=== PATIENT | male | born 1950 ===

== ENCOUNTER 2018-07-26 17:52 | Inpatient (IN) | payer OTHER, MEDICAID ==
--- NOTE | 2018-07-26 19:08 | CP.PCM.HP ---
History of Present Illness - History of Present Illness History of Present Illness: 67 yo male with history of COPD, Depression and HTN was admitted at [facility] on 07/20/2018 because of syncopal episode caused by dehydration from vomiting and diarrhea. He is now transferred here to TCU for therapy. Patient continued to have weakness in spite of being well hydrated. Present on Admission - Present on Admission Any Indicators Present on Admission: No History of DVT/PE: No History of Uncontrolled Diabetes: No Urinary Catheter: No Decubitus Ulcer Present: No Review of Systems - Review of Systems All systems: reviewed and no additional remarkable complaints except (aside from those mentioned above, 12 point system review were negative by me) Past Patient History - Infectious Disease Hx of Infectious Diseases: None - Tetanus Immunizations Tetanus Immunization: Unknown - Past Medical History & Family History Past Medical History?: Yes - Past Social History Smoking Status: Heavy Smoker > 10 Cigarettes Daily Chewing Tobacco Use: No Cigar Use: No Alcohol: Occasional Drugs: Denies Home Situation {Lives}: With Family - CARDIAC Hx Cardiac Disorders: Yes Hx Hypertension: Yes - PULMONARY Hx Chronic Obstructive Pulmonary Disease (COPD): Yes - NEUROLOGICAL HX Cerebrovascular Accident: Yes - HEENT Hx HEENT Problems: No - RENAL Hx Chronic Kidney Disease: No - ENDOCRINE/METABOLIC Hx Endocrine Disorders: No - HEMATOLOGICAL/ONCOLOGICAL Hx Blood Disorders: No - INTEGUMENTARY Hx Dermatological Problems: No - MUSCULOSKELETAL/RHEUMATOLOGICAL Hx Musculoskeletal Disorders: No Hx Falls: Yes - GASTROINTESTINAL Hx Gastrointestinal Disorders: No - GENITOURINARY/GYNECOLOGICAL Hx Genitourinary Disorders: No - PSYCHIATRIC Hx Psychophysiologic Disorder: Yes Hx Anxiety: Yes Hx Depression: Yes Hx Substance Use: No - SURGICAL HISTORY Hx Surgeries: No - ANESTHESIA Hx Anesthesia: No Meds Allergies/Adverse Reactions: Allergies Allergy/AdvReac Type Severity Reaction Status Date / Time No Known Allergies Allergy Verified 07/26/18 18:25 Physical Exam - Constitutional Appears: No Acute Distress - Head Exam Head Exam: ATRAUMATIC - Eye Exam Eye Exam: absent: Scleral icterus - ENT Exam ENT Exam: Mucous Membranes Moist - Neck Exam Neck exam: Negative for: Meningismus - Respiratory Exam Respiratory Exam: absent: Rales, Rhonchi, Wheezes, Respiratory Distress - Cardiovascular Exam Cardiovascular Exam: REGULAR RHYTHM, +S1, +S2 - GI/Abdominal Exam GI & Abdominal Exam: Soft. absent: Tenderness - Rectal Exam Rectal Exam: Deferred - Back Exam Back exam: NORMAL INSPECTION - Neurological Exam Neurological exam: Alert, Oriented x3 - Psychiatric Exam Psychiatric exam: Normal Affect - Skin Skin Exam: Dry, Intact Results - Vital Signs Recent Vital Signs: Last Vital Signs Temp 97.8 F 07/26/18 18:42 Pulse 98 H 07/26/18 18:42 Resp 20 07/26/18 18:42 BP 107/71 07/26/18 18:42 Pulse Ox 95 07/26/18 18:42 Assessment & Plan - Assessment and Plan (Free Text) Assessment: 67 yo male with history of COPD, Depression and HTN was admitted at [facility] on 07/20/2018 because of syncopal episode caused by dehydration from vomiting and diarrhea. He is now transferred here to TCU for therapy. Patient continued to have weakness in spite of being well hydrated. 1. Weakness weakness secondary to deconditioning refer to PT for evaluation and management physiatry consult 2. COPD stable Duoneb via nebulizer q 4hrs prn 3. HTN BP controlled continue Bisoprolol and Lisinopril 4. DVT prophylaxis Heparin 5000 units SC q 12hrs
[2018-07-26] MEDS ORDERED: Influenza Vaccine 60 MCG/0.5 ML SYR (3 yr & up) IM ONE (21:00)
[2018-07-26] MEDS ORDERED: Pneumococcal 23-Valent Vaccine IM ONE (21:00)
[2018-07-26] MEDS ORDERED: Influenza Vaccine 60 mcg/0.5 mL SYR (4YR UP) IM ONE (22:48)
[2018-07-27] MEDS: Albuterol-Ipratrop 3 mg / 0.5 (3 ml) UD IH SCH ×4 (01:15→19:04)
[2018-07-27 06:26] LABS: BASO % 0.6 % (0.0-2.0); EOS # 0.3 K/uL (0.0-0.7); EOS % 3.1 % (0.0-4.0); HEMOGLOBIN 14.1 g/dL (12.0-18.0); LYMPH # 1.7 K/uL (1.0-4.3); LYMPH % 20.5 % (20.0-40.0); MEAN CELL VOLUME 99.1 fl (80.0-94.0); MEAN CORPUSCULAR HEMOGLOBIN 33.8 pg (27.0-31.0); MEAN CORPUSCULAR HGB CONC 34.1 g/dL (33.0-37.0); MEAN PLATELET VOLUME 8.2 fl (7.2-11.7); MONO # 1.2 K/uL (0.0-0.8); MONO % 14.8 % (0.0-10.0); NEUT # 4.9 K/uL (1.8-7.0); NRBC % 0.1 % (0.0-0.0); RBC 4.19 Mil/uL (4.40-5.90); RED CELL DISTRIBUTION WIDTH 12.8 % (11.5-14.5); WHITE BLOOD COUNT 8.1 K/uL (4.8-10.8)
[2018-07-27 06:32] LABS: ALB/GLOB RATIO 1.1 (1.0-2.1); ALBUMIN 4.1 g/dL (3.5-5.0); ALT/SGPT 29 U/L (21-72); AST/SGOT 43 U/L (17-59); BLOOD UREA NITROGEN 14 mg/dl (9-20); CALCIUM 9.9 mg/dL (8.4-10.2); GFR NON-AFRICAN AMERICAN > 60
[2018-07-27] MEDS: Pantoprazole 40 mg EC Tab PO SCH (08:47)
[2018-07-27] MEDS: Potassium Chloride 20 mEq ER Tab PO SCH (08:47)
[2018-07-27] MEDS ORDERED: TERAZOSIN 2 MG PO SCH (09:00)
[2018-07-27] MEDS ORDERED: [UNRECOGNIZED DRUG - MIXTURE] PO SCH (09:00)
[2018-07-28] MEDS: Albuterol-Ipratrop 3 mg / 0.5 (3 ml) UD IH SCH ×4 (01:00→19:16)
[2018-07-28] MEDS: Potassium Chloride 20 mEq ER Tab PO SCH (08:41)
[2018-07-28] MEDS: Pantoprazole 40 mg EC Tab PO SCH (08:41)
--- NOTE | 2018-07-28 12:02 | CP.PCM.PN ---
Subjective - Date & Time of Evaluation Date of Evaluation: 07/28/18 Time of Evaluation: 10:30 - Subjective Subjective: Patient seen and examined. Appeared doing well and admitted being well. Objective - Vital Signs/Intake and Output Vital Signs (last 24 hours): Temp Pulse Resp BP Pulse Ox 98.6 F 80 20 92/57 L 99 07/28/18 08:11 07/28/18 10:23 07/28/18 08:11 07/28/18 10:23 07/28/18 08:11 - Medications Medications: Current Medications Albuterol/Ipratropium (Duoneb 3 Mg/0.5 Mg (3 Ml) Ud) 3 ml IH RQ6 [facility] Last Admin: 07/28/18 07:11 Dose: 3 ml Bisoprolol Fumarate (Zebeta) 10 mg PO DAILY [facility] Last Admin: 07/27/18 08:48 Dose: 10 mg Heparin Sodium (Porcine) (Heparin) 5,000 units SC Q12 [facility]; Protocol Last Admin: 07/28/18 08:40 Dose: 5,000 units Lisinopril (Zestril) 5 mg PO BID [facility] Last Admin: 07/28/18 10:23 Dose: Not Given Pantoprazole Sodium (Protonix Ec Tab) 40 mg PO DAILY [facility] Last Admin: 07/28/18 08:41 Dose: 40 mg Paroxetine HCl (Paxil) 40 mg PO DAILY [facility] Last Admin: 07/28/18 08:41 Dose: 40 mg Potassium Chloride (K-Dur 20 Meq Er Tab) 40 meq PO DAILY [facility] Last Admin: 07/28/18 08:41 Dose: 40 meq Promethazine HCl/Dextromethorphan (Phenergan Dm Syrup) 5 ml PO Q6 PRN PRN Reason: Cough Terazosin HCl (Hytrin) 2 mg PO DAILY [facility] Last Admin: 07/28/18 08:42 Dose: 2 mg - Labs Labs: 07/27/18 05:23 07/27/18 05:23 - Constitutional Appears: No Acute Distress - Head Exam Head Exam: ATRAUMATIC - Eye Exam Eye Exam: absent: Scleral icterus - ENT Exam ENT Exam: Mucous Membranes Moist - Neck Exam Neck Exam: absent: Meningismus - Respiratory Exam Respiratory Exam: absent: Rales, Rhonchi, Wheezes, Respiratory Distress - Cardiovascular Exam Cardiovascular Exam: REGULAR RHYTHM, +S1, +S2 - GI/Abdominal Exam GI & Abdominal Exam: Soft. absent: Tenderness - Rectal Exam Rectal Exam: Deferred - Back Exam Back Exam: NORMAL INSPECTION - Neurological Exam Neurological Exam: Alert, Oriented x3 - Psychiatric Exam Psychiatric exam: Normal Affect - Skin Skin Exam: Dry, Intact Assessment and Plan - Assessment and Plan (Free Text) Assessment: 67 yo male with history of COPD, Depression and HTN was admitted at [facility] on 07/20/2018 because of syncopal episode caused by dehydration from vomiting and diarrhea. He was to TCU for therapy because of ongoing weakness. 1. Weakness doing well and tolerating PT/OT 2. COPD stable Duoneb via nebulizer q 4hrs prn 3. HTN BP on the low side DC Lisinopril continue Bisoprolol 4. DVT prophylaxis Heparin 5000 units SC q 12hrs
[2018-07-28] MEDS: Promethazine DM 6.25 mg-15 mg/5 ml Syrup PO PRN (20:59)
[2018-07-29] MEDS: Albuterol-Ipratrop 3 mg / 0.5 (3 ml) UD IH SCH ×4 (02:48→19:00)
[2018-07-29] MEDS: Pantoprazole 40 mg EC Tab PO SCH (09:49)
[2018-07-29] MEDS: Potassium Chloride 20 mEq ER Tab PO SCH ×2 (09:49→12:40)
[2018-07-29] MEDS: Promethazine DM 6.25 mg-15 mg/5 ml Syrup PO PRN (21:17)
[2018-07-30] MEDS: Albuterol-Ipratrop 3 mg / 0.5 (3 ml) UD IH SCH ×4 (01:00→18:59)
[2018-07-30 06:26] LABS: URINE BILIRUBIN NEGATIVE (NEGATIVE); URINE BLOOD SMALL (NEGATIVE); URINE CLARITY CLEAR (Clear); URINE COLOR YELLOW (YELLOW); URINE GLUCOSE (UA) NEG (NEGATIVE); URINE LEUKOCYTE ESTERASE NEG Leu/uL (Negative); URINE PROTEIN NEGATIVE (NEGATIVE); URINE UROBILINOGEN 0.2-1.0 mg/dL (0.2-1.0)
[2018-07-30] MEDS: Potassium Chloride 20 mEq ER Tab PO SCH (09:06)
[2018-07-30] MEDS: Pantoprazole 40 mg EC Tab PO SCH (09:08)
[2018-07-31] MEDS: Albuterol-Ipratrop 3 mg / 0.5 (3 ml) UD IH SCH ×4 (01:08→19:16)
[2018-07-31] MEDS: Pantoprazole 40 mg EC Tab PO SCH (08:17)
[2018-07-31] MEDS: Potassium Chloride 20 mEq ER Tab PO SCH (08:17)
[2018-08-01] MEDS: Albuterol-Ipratrop 3 mg / 0.5 (3 ml) UD IH SCH ×4 (01:01→19:23)
[2018-08-01] MEDS: Potassium Chloride 20 mEq ER Tab PO SCH (08:20)
[2018-08-01] MEDS: Pantoprazole 40 mg EC Tab PO SCH (08:22)
[2018-08-01] MEDS: Promethazine DM 6.25 mg-15 mg/5 ml Syrup PO PRN (20:48)
[2018-08-02] MEDS: Albuterol-Ipratrop 3 mg / 0.5 (3 ml) UD IH SCH ×5 (00:36→19:23)
[2018-08-02] MEDS: Pantoprazole 40 mg EC Tab PO SCH (08:25)
[2018-08-02] MEDS: Potassium Chloride 20 mEq ER Tab PO SCH (08:26)
[2018-08-02 16:30] VITALS: RESP 20
--- NOTE | 2018-08-02 16:37 | CP.PCM.PN ---
Subjective - Date & Time of Evaluation Date of Evaluation: 08/02/18 Time of Evaluation: 11:00 - Subjective Subjective: Patient seen and examined. Denied any complaint. Objective - Vital Signs/Intake and Output Vital Signs (last 24 hours): Temp Pulse Resp BP Pulse Ox 97.5 F L 74 20 107/65 95 08/02/18 16:30 08/02/18 16:30 08/02/18 16:30 08/02/18 16:30 08/02/18 16:30 - Medications Medications: Current Medications Albuterol/Ipratropium (Duoneb 3 Mg/0.5 Mg (3 Ml) Ud) 3 ml IH RQ6 [facility] Last Admin: 08/02/18 13:18 Dose: 3 ml Bisoprolol Fumarate (Zebeta) 5 mg PO DAILY [facility] Last Admin: 08/02/18 08:25 Dose: 5 mg Heparin Sodium (Porcine) (Heparin) 5,000 units SC Q12 [facility]; Protocol Last Admin: 08/02/18 08:25 Dose: 5,000 units Pantoprazole Sodium (Protonix Ec Tab) 40 mg PO DAILY [facility] Last Admin: 08/02/18 08:25 Dose: 40 mg Paroxetine HCl (Paxil) 40 mg PO DAILY [facility] Last Admin: 08/02/18 08:25 Dose: 40 mg Potassium Chloride (K-Dur 20 Meq Er Tab) 40 meq PO DAILY [facility] Last Admin: 08/02/18 08:26 Dose: 40 meq Promethazine HCl/Dextromethorphan (Phenergan Dm Syrup) 5 ml PO Q6 PRN PRN Reason: Cough Last Admin: 08/01/18 20:48 Dose: 5 ml Terazosin HCl (Hytrin) 2 mg PO DAILY [facility] Last Admin: 08/02/18 08:25 Dose: 2 mg - Labs Labs: 07/27/18 05:23 07/27/18 05:23 - Constitutional Appears: No Acute Distress - Head Exam Head Exam: ATRAUMATIC - Eye Exam Eye Exam: absent: Scleral icterus - ENT Exam ENT Exam: Mucous Membranes Moist - Neck Exam Neck Exam: absent: Meningismus - Respiratory Exam Respiratory Exam: absent: Rales, Rhonchi, Wheezes, Respiratory Distress - Cardiovascular Exam Cardiovascular Exam: REGULAR RHYTHM, +S1, +S2 - GI/Abdominal Exam GI & Abdominal Exam: Soft. absent: Tenderness - Rectal Exam Rectal Exam: Deferred - Back Exam Back Exam: NORMAL INSPECTION - Neurological Exam Neurological Exam: Alert, Oriented x3 - Psychiatric Exam Psychiatric exam: Normal Affect - Skin Skin Exam: Dry, Intact Assessment and Plan - Assessment and Plan (Free Text) Assessment: 67 yo male with history of COPD, Depression and HTN was admitted at [facility] on 07/20/2018 because of syncopal episode caused by dehydration from vomiting and diarrhea. He was to TCU for therapy because of ongoing weakness. 1. Weakness continue PT/OT 2. COPD stable Duoneb via nebulizer q 4hrs prn 3. HTN BP stable continue Bisoprolol 4. DVT prophylaxis Lovenox 40mg SC daily starting tomorrow
[2018-08-03] MEDS: Albuterol-Ipratrop 3 mg / 0.5 (3 ml) UD IH SCH ×3 (01:00→13:29)
[2018-08-03 06:12] LABS: HEMOGLOBIN 13.5 g/dL (12.0-18.0); MEAN CORPUSCULAR HEMOGLOBIN 33.3 pg (27.0-31.0); MEAN CORPUSCULAR HGB CONC 34.4 g/dL (33.0-37.0); RBC 4.04 Mil/uL (4.40-5.90); RED CELL DISTRIBUTION WIDTH 12.8 % (11.5-14.5); WHITE BLOOD COUNT 5.1 K/uL (4.8-10.8)
[2018-08-03 06:42] LABS: BLOOD UREA NITROGEN 18 mg/dl (9-20); CALCIUM 9.7 mg/dL (8.4-10.2); GFR NON-AFRICAN AMERICAN > 60
[2018-08-03 07:56] VITALS: BP 109/65; PULSE 70; TEMP 97.7; O2SAT 98
[2018-08-03] MEDS: Pantoprazole 40 mg EC Tab PO SCH (08:04)
[2018-08-03] MEDS: Potassium Chloride 20 mEq ER Tab PO SCH (08:04)
[2018-08-03] MEDS: Promethazine DM 6.25 mg-15 mg/5 ml Syrup PO PRN (08:05)
[2018-08-03] MEDS ORDERED: Enoxaparin 40 mg Syringe SC SCH (09:00)
--- NOTE | 2018-08-03 11:36 | CP.PCM.DIS ---
Provider - Provider Date of Admission: 07/26/18 18:51 Attending physician: Oidlon Coon MD Consults: 07/27/18 07:30 Case Management Referral Routine Comment: Physician Instructions: Reason For Exam: Reason for Referral: Discharge Planning Pastoral Care Referral Routine Comment: Physician Instructions: Reason For Exam: advance directive information 07/27/18 08:27 Wound Care [Nursing Referral for Wound Care] Routine Comment: Physician Instructions: Reason For Exam: new admission, christiano score 17 Time Spent in preparation of Discharge (in minutes): 25 Diagnosis - Discharge Diagnosis (1) Weakness Status: Acute Comment: did well with therapy (2) COPD (chronic obstructive pulmonary disease) Status: Chronic Comment: asymptomatic. continue Ventolin inhaler q 4hrs prn for SOB (3) HTN (hypertension) Status: Acute Comment: BP stable. continue Bisoprolol Hospital Course - Lab Results Lab Results: Most Recent Lab Values WBC 5.1 K/uL (4.8-10.8) 08/03/18 05:30 RBC 4.04 Mil/uL (4.40-5.90) L 08/03/18 05:30 Hgb 13.5 g/dL (12.0-18.0) 08/03/18 05:30 Hct 39.2 % (35.0-51.0) 08/03/18 05:30 MCV 97.0 fl (80.0-94.0) H D 08/03/18 05:30 MCH 33.3 pg (27.0-31.0) H 08/03/18 05:30 MCHC 34.4 g/dL (33.0-37.0) 08/03/18 05:30 RDW 12.8 % (11.5-14.5) 08/03/18 05:30 Plt Count 554 K/uL (130-400) H 08/03/18 05:30 MPV 8.2 fl (7.2-11.7) 07/27/18 05:23 Neut % (Auto) 61.0 % (50.0-75.0) 07/27/18 05:23 Lymph % (Auto) 20.5 % (20.0-40.0) 07/27/18 05:23 Park % (Auto) 14.8 % (0.0-10.0) H 07/27/18 05:23 Eos % (Auto) 3.1 % (0.0-4.0) 07/27/18 05:23 Baso % (Auto) 0.6 % (0.0-2.0) 07/27/18 05:23 Neut # (Auto) 4.9 K/uL (1.8-7.0) 07/27/18 05:23 Lymph # (Auto) 1.7 K/uL (1.0-4.3) 07/27/18 05:23 Park # (Auto) 1.2 K/uL (0.0-0.8) H 07/27/18 05:23 Eos # (Auto) 0.3 K/uL (0.0-0.7) 07/27/18 05:23 Baso # (Auto) 0.0 K/uL (0.0-0.2) 07/27/18 05:23 Sodium 136 mmol/l (132-148) 08/03/18 05:30 Potassium 4.1 MMOL/L (3.6-5.0) 08/03/18 05:30 Chloride 96 mmol/L (98-107) L 08/03/18 05:30 Carbon Dioxide 28 mmol/L (22-30) 08/03/18 05:30 Anion Gap 16 (10-20) 08/03/18 05:30 BUN 18 mg/dl (9-20) 08/03/18 05:30 Creatinine 0.9 mg/dl (0.8-1.5) 08/03/18 05:30 Est GFR ( Amer) > 60 08/03/18 05:30 Est GFR (Non-Af Amer) > 60 08/03/18 05:30 Random Glucose 126 mg/dL (75-110) H 08/03/18 05:30 Calcium 9.7 mg/dL (8.4-10.2) 08/03/18 05:30 Total Bilirubin 0.7 mg/dl (0.2-1.3) 07/27/18 05:23 AST 43 U/L (17-59) 07/27/18 05:23 ALT 29 U/L (21-72) 07/27/18 05:23 Alkaline Phosphatase 56 U/L (38-126) 07/27/18 05:23 Total Protein 7.9 G/DL (6.3-8.2) 07/27/18 05:23 Albumin 4.1 g/dL (3.5-5.0) 07/27/18 05:23 Globulin 3.8 gm/dL (2.2-3.9) 07/27/18 05:23 Albumin/Globulin Ratio 1.1 (1.0-2.1) 07/27/18 05:23 Urine Color Yellow (YELLOW) 07/30/18 06:00 Urine Clarity Clear (Clear) 07/30/18 06:00 Urine pH 6.0 (5.0-8.0) 07/30/18 06:00 Ur Specific [place] 1.014 (1.003-1.030) 07/30/18 06:00 Urine Protein Negative mg/dL (NEGATIVE) 07/30/18 06:00 Urine Glucose (UA) Neg mg/dL (NEGATIVE) 07/30/18 06:00 Urine Ketones Negative mg/dL (NEGATIVE) 07/30/18 06:00 Urine Blood Small (NEGATIVE) 07/30/18 06:00 Urine Nitrate Negative (NEGATIVE) 07/30/18 06:00 Urine Bilirubin Negative (NEGATIVE) 07/30/18 06:00 Urine Urobilinogen 0.2-1.0 mg/dL (0.2-1.0) 07/30/18 06:00 Ur Leukocyte Esterase Neg Nettie/uL (Negative) 07/30/18 06:00 Urine Microscopic WBC < 1 /hpf (0-5) 07/30/18 06:00 - Hospital Course Hospital Course: 67 yo male with history of COPD, Depression and HTN was admitted at [facility] on 07/20/2018 because of syncopal episode caused by dehydration from vomiting and diarrhea. He was transferred to TCU for therapy because of weakness and further management. Patient did well and now is ready for discharge. Discharge Exam - Head Exam Head Exam: ATRAUMATIC - Eye Exam Eye Exam: absent: Scleral icterus - ENT Exam ENT Exam: Mucous Membranes Moist - Respiratory Exam Respiratory Exam: absent: Rales, Rhonchi, Wheezes, Respiratory Distress - Cardiovascular Exam Cardiovascular Exam: REGULAR RHYTHM, +S1, +S2 - GI/Abdominal Exam GI & Abdominal Exam: Soft. absent: Tenderness - Rectal Exam Rectal Exam: Deferred - Back Exam Back exam: NORMAL INSPECTION - Neurological Exam Neurological exam: Alert, Oriented x3 - Psychiatric Exam Psychiatric exam: Normal Affect - Skin Skin Exam: Dry, Intact Discharge Plan - Follow Up Plan Condition: GOOD Disposition: HOME/ ROUTINE Instructions: Dehydration, Adult (DC), Syncope (Fainting) (DC)
== END 2018-08-03 13:55 | disposition home or self-care (01) | DRG 946 ==
LOC: H.TCU 18:51
PROC: F07Z9FZ Gait Training/Functional Ambulation Treatment using Assistive, Adaptive, Supportive or Protective Equipment (ICD-10-PCS; principal; 2018-07-26)
PROC: F07L6GZ Therapeutic Exercise Treatment of Musculoskeletal System - Lower Back / Lower Extremity using Aerobic Endurance and Conditioning Equipment (ICD-10-PCS; 2018-07-26)
PROC: F08Z1ZZ Dressing Techniques Treatment (ICD-10-PCS; 2018-07-26)
PROC: 3E02340 Introduction of Influenza Vaccine into Muscle, Percutaneous Approach (ICD-10-PCS; 2018-07-26)
PROC: 3E0234Z Introduction of Serum, Toxoid and Vaccine into Muscle, Percutaneous Approach (ICD-10-PCS; 2018-07-26)
PROC: 5A0955Z Assistance with Respiratory Ventilation, Greater than 96 Consecutive Hours (ICD-10-PCS; 2018-07-27)
DX: R53.1 Weakness (principal); J44.9 Chronic obstructive pulmonary disease, unspecified; I10 Essential (primary) hypertension; Z86.73 Personal history of transient ischemic attack (TIA), and cerebral infarction without residual deficits; F32.9 Major depressive disorder, single episode, unspecified; F41.9 Anxiety disorder, unspecified; F17.210 Nicotine dependence, cigarettes, uncomplicated; Z23 Encounter for immunization